=== PATIENT | male | born 1990 | race Caucasian/White ===

== ENCOUNTER 2017-05-15 09:37 | Emergency (ER) | payer MEDICAID, OTHER ==
[2017-05-15 10:17] LABS: CHLORIDE,CL 101 mEq/L (98-106); SODIUM,NA 138 mEq/L (136-145)
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
[2017-05-15 11:15] VITALS: BP 132/70
== END 2017-05-15 11:35 | disposition home or self-care (01) ==
LOC: CC.ED 09:37 → MERGE 09:37 → EDBD 09:37 → CC.ED 11:35
DX: T40.1X1A Poisoning by heroin, accidental (unintentional), initial encounter (principal); F17.210 Nicotine dependence, cigarettes, uncomplicated
CPT/HCPCS: 36415; 80053; 85025; 93005; 99284